=== PATIENT | male | born 1960 | race Caucasian/White ===

== ENCOUNTER → 2020-07-19 | Outpatient (CLI) | payer BC ==
--- NOTE | 2020-07-19 15:17 | KCIC ---
EXAM: US RENAL BILAT 07/19/2020 2:39 PM INDICATION: Hydronephrosis. COMPARISON: CT abdomen and pelvis 02/08/2020 Technique: Grayscale and color Doppler ultrasound images of the kidneys and bladder FINDINGS: The right kidney measures 10.6 x 4.0 x 4.1 cm. The left kidney measures 9.7 x 4.6 x 6.0 cm. Renal e chogenicity and cortical thickness are normal. No hydronephrosis. The urinary bladder is unremarkable. Bilateral ureteral jets are visualized. IMPRESSION: Normal renal ultrasound. No hydronephrosis. Electronically signed by: Melanie Brooke MD (07/19/2020 3:15 PM) [id number]
== END ==
LOC: KCIC US 14:22
PROVIDERS: ATTEND Family Medicine
DX: N13.39 Other hydronephrosis (principal)
CPT/HCPCS: 76770